=== PATIENT | female | born 1975 | race Hispanic/Latino ===

== ENCOUNTER 2023-12-15 20:11 | Emergency (ER) | payer OTHER ==
[~2023-12-15] VITALS: Ht 144.8 cm; Wt 63.5 kg
[2023-12-15 20:49] LABS: BASOPHILS # (AUTO) 0.05 K/uL (0.00-0.20); BASOPHILS % (AUTO) 0.9 % (0.0-5.0); EOSINOPHILS # (AUTO) 0.24 K/uL (0.00-0.70); EOSINOPHILS % (AUTO) 4.1 % (0.0-8.0); HEMATOCRIT 38.5 % (36-48); IMMATURE GRANULOCYTE ABSOLUTE 0.02 K/uL (0-1); LYMPHOCYTES # (AUTO) 1.7 K/uL (1.0-4.8); LYMPHOCYTES % (AUTO) 28.7 % (21.0-51.0); MEAN CORPUSCULAR HEMOGLOBIN 30.8 pg (27.0-33.0); MEAN CORPUSCULAR HGB CONC 33.5 g/dL (32.0-36.0); MEAN CORPUSCULAR VOLUME 91.9 fL (79-99); MONOCYTES # (AUTO) 0.3 K/uL (0.1-1.0); MONOCYTES % (AUTO) 5.3 % (3.0-13.0); NEUTROPHILS # (AUTO) 3.5 K/uL (1.8-7.7); NEUTROPHILS % (AUTO) 60.7 % (40.0-77.0); PLATELET COUNT (AUTO) 289 K/uL (130-400); RED BLOOD CELL COUNT(AUTO) 4.19 MIL/uL (4.00-5.50); WHITE BLOOD COUNT (AUTO) 5.8 K/uL (4.8-10.8)
[2023-12-15 21:01] LABS: CREATININE 0.8 mg/dL (0.5-1.0); POTASSIUM 3.6 mmol/L (3.5-5.1)
[2023-12-15 21:02] LABS: INR <= 0.93 (0.85-1.15); PROTHROMBIN TIME 10.3 SEC (9.6-11.6)
[2023-12-15 21:04] LABS: PARTIAL THROMBOPLASTIN TIME 24.4 SEC (26.3-35.5)
[2023-12-15 21:11] LABS: ALBUMIN 3.8 g/dL (3.5-5.0); BILIRUBIN,TOTAL 0.3 mg/dL (0.2-1.0); TOTAL PROTEIN, SERUM 7.7 g/dL (6.0-8.3)
[2023-12-15] MEDS: 0.9%NACL 1000ML 1,000 ML IV ONE (22:03)
[2023-12-15] MEDS ORDERED: LEVE-43 PO (22:27)
[2023-12-15] MEDS: LEVETIRACETAM 500 MG/5 ML SD VIAL IV STA (22:42)
[2023-12-16 00:04] VITALS: BP 103/70; PULSE 72; RESP 20; O2SAT 98
== END 2023-12-16 00:06 | disposition home or self-care (01) ==
LOC: EDH 20:11
DX: R56.9 Unspecified convulsions (principal); R55 Syncope and collapse; R53.1 Weakness
CPT/HCPCS: 99285; 70450; 84484; 80053; 84703; 85025; 85610; 85730; 36415; 93005; J1953; J7030